=== PATIENT | male | born 1990 | race Hispanic/Latino ===

== ENCOUNTER 2017-09-09 14:29 | Emergency (ER) | payer OTHER ==
[2017-09-09] MEDS: diazePAM 5 MG TAB PO (16:36)
[2017-09-09] MEDS: KETOROLAC 60 MG/2 ML VIAL (J1885) IM (16:36)
== END 2017-09-09 17:10 | disposition home or self-care (01) ==
LOC: M ED 14:29
DX: S39.012A Strain of muscle, fascia and tendon of lower back, initial encounter (principal); X50.0XXA Overexertion from strenuous movement or load, initial encounter; Y92.39 Other specified sports and athletic area as the place of occurrence of the external cause; Y93.B3 Activity, free weights; F17.210 Nicotine dependence, cigarettes, uncomplicated
CPT/HCPCS: J1885